=== PATIENT | male | born 1980 | race Caucasian/White ===

== ENCOUNTER 2018-03-06 18:23 | Emergency (ER) | payer MEDICAID ==
--- NOTE | 2018-03-06 18:55 | EDPHY ---
HPI/HX/ROS/PE/MDM Narrative: CHIEF COMPLAINT: Unable to urinate for four days HISTORY OF PRESENT ILLNESS: This patient is a 38 year old male with history of alcohol abuse who presents after being unable to urinate for four days. Five days ago he began to have sulfurous burps and frequent diarrhea. He tried green tea and honey for relief but symptoms persist. He endorses diaphoresis when he is about to have diarrhea and has noted black stools. He denies noting any nena red blood and denies history of hemorrhoids. He has continued to eat well and continue to drink fluids. He has not had any vomiting. Four days ago, he stopped urinating. He has history of kidney problems related to dehydration. Today, his roommate encouraged him to come in to the ED for evaluation. He endorses history of alcohol abuse and states he has cut back on alcohol consumption. His last drink was today. No history of alcohol withdrawal or withdrawal seizures. He denies known history of ulcers, esophageal varices, GI bleed, hepatitis, pancreatitis. No fever, chills, chest pain, shortness of breath, palpitations, vomiting, headache, lightheadedness. REVIEW OF SYSTEMS: Aside from elements discussed in the HPI, a comprehensive 10-point review of systems was reviewed and is negative. PAST MEDICAL HISTORY: Renal failure secondary to dehydration. SOCIAL HISTORY: Lives in [place]. Alcohol abuse. Daily tobacco use. Endorses marijuana and cocaine use. VITAL SIGNS: Reviewed by me GENERAL: Well-developed, well-nourished, resting comfortably in no respiratory distress. HEENT: Atraumatic. Eyes: No icterus, no injection. Mouth: moist mucous membranes. No erythema or lesions. Neck: supple with no adenopathy. LUNGS: Clear to auscultation bilaterally, no wheezes, rhonchi or rales. CARDIAC: Regular rate and rhythm, no rubs, murmurs or gallops. ABDOMEN: Soft, nontender, nondistended, bowel sounds normal. RECTAL: No hemorrhoids, brown stool on the glove. BACK: No CVA tenderness. EXTREMITIES: No trauma. No edema. Range of motion is normal throughout. NEURO: Alert and oriented, grossly nonfocal. SKIN: Warm and dry, no rash. PSYCHIATRIC: Normal mentation, no agitation. Portions of this note were transcribed by a medical hospital sales. I personally performed a history, physical exam, medical decision making, and confirmed accuracy of information the transcribed note. ED Course: 38 y/o male presents after four days of inability to urinate. Exam unremarkable. Plan for bladder scan. IV established. Plan for labs including CBC , chemistries, liver, lipase, EtOH, occult blood, UA. Plan to administer 1L IV NS. 18:45 Bladder scan performed at bedside. Bladder is not enlarged. It appears that there is no urine in the bladder. IV fluids administered. Labs: EtOH 157. Occult blood negative. Labs otherwise largely unremarkable. Normal BUN and creatinine. Patient is still unable to urinate. Plan to administer an additional 1L IVF. 20:45 Patient has urinated and is currently feeling well. Urinalysis demonstrates no abnormalities. Patient reassured that at this point there is no evidence of acute renal insufficiency, patient did not have postobstructive urinary retention on arrival , he has not had a fever. I suspect the patient may have been somewhat dehydrated given his diarrhea and may have in fact had small amounts of urine output without recalling these episodes. I believe he is safe to be discharged. MDM: Differential diagnosis considered included acute renal insufficiency, acute renal failure, dehydration, urinary tract infection, electrolyte abnormalities, drug or alcohol abuse, drug or alcohol withdrawal. - Data Points Laboratory Results: Laboratory Results 03/06/18 19:10 03/06/18 19:10 Medications Given: Discontinued Medications Sodium Chloride (Ns) 1,000 mls @ 0 mls/hr IV ONCE ONE; Wide Open PRN Reason: Protocol Stop: 03/06/18 19:00 Last Admin: 03/06/18 19:15 Dose: 1,000 mls Sodium Chloride (Ns) 1,000 mls @ 0 mls/hr IV ONCE ONE; Wide Open PRN Reason: Protocol Stop: 03/06/18 19:43 Last Admin: 03/06/18 19:44 Dose: 1,000 mls General Time Seen by Provider: 03/06/18 18:44 Initial Vital Signs: Initial Vital Signs Temperature (C) 37 C 03/06/18 18:36 Heart Rate 98 03/06/18 18:36 Respiratory Rate 16 03/06/18 18:36 Blood Pressure 123/82 H 03/06/18 18:36 O2 Sat (%) 95 03/06/18 18:36 O2 Delivery Mode Room Air Allergies/Adverse Reactions: No Known Allergies Allergy (Unverified 03/06/18 18:36) Departure - Departure Disposition: Home, Routine, Self-Care Clinical Impression: Decreased urine output Condition: Good Instructions: Dehydration (ED) Additional Instructions: Please drink plenty of fluid. Please monitor urine output. Please follow up with your primary care physician for re-examination as well as other evaluation if your symptoms continue. Referrals: Bello Martinez MD [[facility] [place] Primary Care Provider] - As per Instructions Report Scribed for: Tosin Mercer Report Scribed by: Mariaelena Cheney Date of Report: 03/06/18 Time of Report: 20:13
[2018-03-06] MEDS ORDERED: NS 1,000 ML IV ONE ×2 (18:59→19:42)
[2018-03-06 19:18] LABS: PLATELET COUNT 250 10^3/uL (150-400)
[2018-03-06 21:39] VITALS: BP 125/83
== END 2018-03-06 21:44 | disposition home or self-care (01) ==
DX: R39.12 Poor urinary stream (principal); E86.9 Volume depletion, unspecified
CPT/HCPCS: G0480

== ENCOUNTER 2018-08-11 10:21 | Emergency (ER) | payer MEDICAID ==
--- NOTE | 2018-08-11 10:30 | EDPHY ---
H & P - Medical/Surgical History Hx Asthma: No Hx Chronic Respiratory Disease: No Hx Diabetes: No Hx Cardiac Disease: No Hx Renal Disease: Yes Hx Cirrhosis: No Hx Alcoholism: No Hx HIV/AIDS: No Hx Splenectomy or Spleen Trauma: No Other PMH: acute renal failure, - Social History Smoking Status: Current every day smoker Time Seen by Provider: 08/11/18 10:24 HPI/ROS: CHIEF COMPLAINT: "I'm Being chased" HISTORY OF PRESENT ILLNESS: 38-year-old male arrives via ambulance accompanied by police on an M1 hold. Patient admits to polysubstance abuse including methamphetamine last uses at 11:00 p.m. last evening via oral route. Patient states that he believes people are following him and he was found to be acting erratically and a public area. When I interview the patient he tells me that people are chasing him. He denies suicidal or homicidal ideation no reports of trauma. Denies hallucination. REVIEW OF SYSTEMS: 10 systems reviewed and negative with the exception of the elements mentioned in the history of present illness PAST MEDICAL & SURGICAL HISTORY: No pertinent medical or surgical history SOCIAL HISTORY: Last methamphetamine use 11:00 p.m. Last evening. PHYSICAL EXAM (Prior to examination, patient consented to physical exam, hands were washed and my usual and customary physical exam procedures followed) 1) GENERAL: poorly kept, rambling speech, flight of ideas Appears to be in no acute distress. Patient is hiding under a blanket when I enter the room is hesitant to come out from under the blanket. 2) HEAD: Normocephalic, atraumatic. No abrasion laceration 3) HEENT: Pupils equal, round, reactive to light bilaterally. Sclera anicteric. 4) NECK: Full range of motion, no meningeal signs. 5) LUNGS: Clear auscultation bilaterally, no wheezes, no rhonchi, no retractions. 6) HEART: Regular rate and rhythm, no murmur, no heave, no gallop. 7) ABDOMEN: No guarding, no rebound, no focal tenderness, 8) MUSCULOSKELETAL: Moving all extremities, no focal areas of tenderness, no obvious trauma. No peripheral edema or discoloration. 9) BACK: No visual or palpable abnormality. 10) SKIN: No rash, no petechiae. 11) Psychiatric: Patient is oriented X 3, there is no agitation. DIFFERENTIAL DIAGNOSIS: In no particular orderincluding but not limited to hypoglycemia, infectious process, electrolyte abnormality, head injury and intoxicants. (Yasmany Watkins) Constitutional: Initial Vital Signs Temperature (C) 36.4 C 08/11/18 10:21 Heart Rate 83 08/11/18 10:21 Respiratory Rate 16 08/11/18 10:21 Blood Pressure 149/79 H 08/11/18 10:21 O2 Sat (%) 98 08/11/18 10:21 O2 Delivery Mode Room Air Allergies/Adverse Reactions: No Known Allergies Allergy (Unverified 03/06/18 18:36) Medical Decision Making ED Course/Re-evaluation: 11:00 a.m. I saw this patient independently based on established practice protocols. Care of patient under supervision of secondary supervising physician Dr Tanner Moran with whom I discussed case. 5:00 p.m.: Serial exams performed on this patient by myself. He remains calm and cooperative. Care turned over to Dr. Anthony Davison awaiting mental health evaluation. Because patient's positive methamphetamine status usage he is sobering in the ER prior to health evaluation. He remains calm and cooperative. (Yasmany Watkins) Other Provider: Care assumed from Dr. Moran at 2:40 p.m. For this psychotic patient with a history of methamphetamine abuse. PHYSICIAN DOCUMENTATION: The patient was evaluated and managed by the Physician Electric Motor Mechanic and myself. I have reviewed the chart and agree with the findings and plan of care as documented. In addition, I examined the patient myself at 1515. History confirmed as denies bipolar or schizophrenia or schizoaffective. Physical findings as follows: Patient stares at me but has difficulty formulating words or sentences. He can answer yes or no to simple queries. Plan for serial examinations and screening labs. 2038: The patient had mental health evaluation and is the recommendation the patient be discharged. He is a known [facility] client with history of PTSD and does not appear to be psychotic now. Does not meet criteria for mental health hold at this time. I am the secondary supervising physician. (Anthony Davison) - Data Points Laboratory Results: Laboratory Results 08/11/18 10:43 08/11/18 10:43 08/11/18 08/11/18 08/11/18 10:43 10:43 10:24 WBC 5.66 10^3/uL 10^3/uL (3.80-9.50) RBC 4.58 10^6/uL 10^6/uL (4.40-6.38) Hgb 15.3 g/dL g/dL (13.7-17.5) Hct 42.7 % % (40.0-51.0) MCV 93.2 fL fL (81.5-99.8) MCH 33.4 pg pg (27.9-34.1) MCHC 35.8 g/dL g/dL (32.4-36.7) RDW 11.9 % % (11.5-15.2) Plt Count 233 10^3/uL 10^3/uL (150-400) MPV 9.6 fL fL (8.7-11.7) Neut % (Auto) 60.8 % % (39.3-74.2) Lymph % (Auto) 27.4 % % (15.0-45.0) Guthrie % (Auto) 9.7 % % (4.5-13.0) Eos % (Auto) 0.5 % L % (0.6-7.6) Baso % (Auto) 0.4 % % (0.3-1.7) Nucleat RBC Rel Count 0.0 % % (0.0-0.2) Absolute Neuts (auto) 3.44 10^3/uL 10^3/uL (1.70-6.50) Absolute Lymphs (auto) 1.55 10^3/uL 10^3/uL (1.00-3.00) Absolute Monos (auto) 0.55 10^3/uL 10^3/uL (0.30-0.80) Absolute Eos (auto) 0.03 10^3/uL 10^3/uL (0.03-0.40) Absolute Basos (auto) 0.02 10^3/uL 10^3/uL (0.02-0.10) Absolute Nucleated RBC 0.00 10^3/uL 10^3/uL (0-0.01) Immature Gran % 1.2 % H % (0.0-1.1) Immature Gran # 0.07 10^3/uL 10^3/uL (0.00-0.10) Sodium 141 mEq/L mEq/L (135-145) Potassium 3.7 mEq/L mEq/L (3.3-5.0) Chloride 104 mEq/L mEq/L (97-110) Carbon Dioxide 27 mEq/l mEq/l (22-31) Anion Gap 10 mEq/L mEq/L (6-14) BUN 14 mg/dL mg/dL (7-23) Creatinine 0.7 mg/dL mg/dL (0.7-1.3) Estimated GFR > 60 Glucose 101 mg/dL H mg/dL (70-100) Calcium 9.8 mg/dL mg/dL (8.5-10.4) Salicylates < 1.0 mg/dL L mg/dL (2.0-20.0) Urine Opiates Screen NEGATIVE (NEGATIVE) Acetaminophen < 10 mcg/mL L mcg/mL (10-30) Urine Barbiturates NEGATIVE (NEGATIVE) Ur Phencyclidine Scrn NEGATIVE (NEGATIVE) Ur Amphetamine Screen NON-NEGATIVE H (NEGATIVE) U Benzodiazepines Scrn NEGATIVE (NEGATIVE) Urine Cocaine Screen NEGATIVE (NEGATIVE) U Marijuana (THC) Screen NON-NEGATIVE H (NEGATIVE) Ethyl Alcohol < 10 mg/dL mg/dL (0-10) Medications Given: Discontinued Medications Lorazepam (Ativan) 1 mg PO EDNOW ONE Stop: 08/11/18 10:58 Last Admin: 08/11/18 11:31 Dose: 1 mg Departure - Departure Disposition: Home, Routine, Self-Care Clinical Impression: Methamphetamine abuse, PTSD (post-traumatic stress disorder) Condition: Good Instructions: Methamphetamine Abuse (ED), Post Traumatic Stress Disorder (ED) Referrals: [facility],. [Clinic] - As per Instructions
[2018-08-11] MEDS ORDERED: LORazepam 1 MG TAB PO ONE (10:57)
[2018-08-11 11:04] LABS: PLATELET COUNT 233 10^3/uL (150-400)
[2018-08-11 20:59] VITALS: BP 132/86
--- NOTE | 2018-08-12 18:46 | ASMTLCPROG ---
Notes Note: Notes: PT REPORTED DAILY METH USE FOR THE LAST 25 YEARS. PT REPORTED THIS IS THE FIRST TIME HE HAS EVER BEEN PARANOID AND FEARED FOR HIS LIFE. PT CONTINUED TO DENY SI OR HI. PT IS AN OPEN CLIENT OF [facility] [place]. [facility] EVAL MEMBER SPOKE WITH PT 16:23 PT SAID HE WAS STARTING TO FEEL BETTER BUT ASKED FOR A BIT MORE TIME TO ORIENT AND FEEL SAFE BEFORE GOING [facility]. [facility] LEGAL OPERATIONS MANAGER SPOKE WITH PT AGAIN AT 20:22; PT WAS CLEAR, LUCID, ORIENTED, AND CONTINUD TO DENY SI OR HI. PT WAS ABLE TO CONVERSE, AND TALKED ABOUT HOW HE COULD IMPROVE HIS LIFE AND ASKED FOR REFERAL INFORMATION. [facility] PROVIDED PT WITH [facility], CRISIS HOTLINE, AND [facility] [place] INFORMATION. PT'S HOLD WAS LIFTED BY SALLIE HUERTA MD AND PT WAS DISHCARGED HOME. Date Signed: 08/12/2018 06:45 PM Electronically Signed By:Ozzie Calabrese
== END 2018-08-11 21:14 | disposition home or self-care (01) ==
LOC: EDUNIT#
DX: F91.8 Other conduct disorders (principal); F43.12 Post-traumatic stress disorder, chronic; F15.20 Other stimulant dependence, uncomplicated; F17.200 Nicotine dependence, unspecified, uncomplicated
CPT/HCPCS: 80305; G0480